=== PATIENT | male | born 1950 | race Caucasian/White ===

== ENCOUNTER 2016-04-22 23:02 | Inpatient (IN) | payer MEDICARE, MEDICAID ==
--- NOTE | 2016-04-22 23:19 | ED.PDOC ---
History of Present Illness - General Chief Complaint: Upper Extremity Injury Stated Complaint: swelling and redness right upper extremity Time Seen by Provider: 04/22/16 23:11 Source: patient, Vital Signs reviewed Exam Limitations: no limitations - History of Present Illness Initial Comments: He stated that he was reaching for his flashlight that fell behind the wall while his friend was prying the wallboard then after picking up his flashlight his friend released the wallboard and protruding nail stuck his right arm this happened at his garage while doing repair work. Occurred: other - 2 days ago Pain - Upper Extremity: moderate: Upper arm, right, Elbow, right Method of Injury: other - punctured wound Improving Factors: nothing Worsening Factors: movement Allergies/Adverse Reactions: Allergies NO KNOWN ALLERGY Allergy (Verified 02/05/15 10:21) Home Medications: Ambulatory Orders Lisinopril [Prinivil] 10 mg PO 10/26/15 Acetaminophen W/ Codeine [Tylenol W/ CODEINE #3] 1 - 2 ea PO Q4H #30 10/28/15 Bifidobacterium Infantis [Align] 4 mg NG DAILY #30 cap 10/28/15 Chlorhexidine Gluc 4% 15Ml [Hibiclens 15ml Unit Dose] 15 ml TOP ONCE #0 ud 10/27 Doxycycline (Monohydrate) [Doxycycline] 100 mg PO BID #28 cap 10/28/15 Doxycycline Hyclate [Vibramycin] 100 mg PO BID #28 cap 10/28/15 Sulfa/Trimeth 800/160 (Ds) Tab [Bactrim DS] 1 ea PO BID #28 tab 10/28/15 Review of Systems - Review of Systems Constitutional: States: no symptoms reported EENTM: States: no symptoms reported Respiratory: States: no symptoms reported Cardiology: States: no symptoms reported Gastrointestinal/Abdominal: States: no symptoms reported Genitourinary: States: other - urgency Musculoskeletal: States: joint swelling, muscle pain Skin: States: see HPI Neurological: States: no symptoms reported Endocrine: States: no symptoms reported Hematologic/Lymphatic: States: no symptoms reported Past Medical History (General) - Patient Medical History Hx Seizures: No Hx Stroke: No Hx Dementia: No Hx Asthma: No Hx of COPD: Yes Hx Cardiac Disorders: No Hx Congestive Heart Failure: No Hx Pacemaker: No Hx Hypertension: Yes Hx Thyroid Disease: No Hx Diabetes: No Hx Gastroesophageal Reflux: No Hx Renal Disease: No Hx Cancer: Yes - lung Hx of HIV: No Hx Hepatitis C: No Hx MRSA: Yes - 2015 MRSA Source:: Wound Surgical History: other - back,sympathectomy right - Vaccination History Hx Tetanus, Diphtheria Vaccination: Yes - <5 years Hx Influenza Vaccination: No Hx Pneumococcal Vaccination: No - Social History Hx Tobacco Use: Yes Hx Chewing Tobacco Use: No Hx Alcohol Use: Yes Hx Substance Use: No Hx Substance Use Treatment: No Hx Depression: Yes Hx Physical Abuse: No Hx Emotional Abuse: No Hx Suspected Abuse: No - Activities of Daily Living Patient Lives Alone: No - Female History Patient : No Family Medical History - Family History Mother Family History: Unknown Living Status: Unknown Hx Family Diabetes: Yes - mom Hx Family Cancer: Yes - gallbladder-sister Physical Exam - Physical Exam General Appearance: Alert, No apparent distress Eyes, Ears, Nose, Throat Exam: PERRL/EOMI, normal ENT inspection, TMs normal, pharynx normal Neck: full range of motion, supple, normal inspection Cardiovascular/Respiratory: regular rate, rhythm, no M/R/G, normal peripheral pulses, no JVD, normal breath sounds Abdominal Exam: non-tender, no organomegaly Back Exam: normal inspection, no CVA tenderness, no vertebral tenderness Shoulder Exam: non-tender, no evidence of injury Elbow/Forearm Exam: limited ROM - right upper extremity, pain, soft tissue tenderness, swelling - redness Hand Exam: non-tender, no evidence of injury Neuro/Tendon: normal motor functions, normal tendon functions, responds to pain Mental Status: alert, oriented x 3 Skin Exam: normal color, warm/dry Progress - Results/Orders Results/Orders: 04/22/16 23:29 COMPLETE METABOLIC PROFILE Stat LACTIC ACID Stat CBC (AUTOMATED) W/AUTO DIFF Stat 04/22/16 23:49 BLOOD CULTURE Stat 04/22/16 23:29 COMPLETE METABOLIC PROFILE Stat LACTIC ACID Stat CBC (AUTOMATED) W/AUTO DIFF Stat 04/22/16 23:49 BLOOD CULTURE Stat 04/23/16 00:58 Vancomycin HCl Inj 1,000 mg Vancomycin HCl Inj 500 mg Sodium Chloride 0.9% 250Ml [NS 250ml] 250 ml IVPB ONCE Laboratory Results WBC 19.0 K/mm3 (4.8-10.8) H 04/22/16 00:30 RBC 4.63 M/mm3 (4.70-6.10) L 04/22/16 00:30 Hgb 14.5 gm/dL (14.0-18.0) 04/22/16 00:30 Hct 43.4 % (42.0-52.0) 04/22/16 00:30 MCV 93.6 fl (80.0-94.0) 04/22/16 00:30 MCH 31.3 pg (27.0-31.0) H 04/22/16 00:30 MCHC 33.5 g/dL (33.0-37.0) 04/22/16 00:30 RDW 13.0 % (11.5-14.5) 04/22/16 00:30 Plt Count 249 K/mm3 (130-400) 04/22/16 00:30 MPV 8.1 fl (7.40-10.4) 04/22/16 00:30 Absolute Neuts (auto) 16.50 K/uL (1.8-6.8) H 04/22/16 00:30 Absolute Lymphs (auto) 1.20 K/uL (1.0-3.4) 04/22/16 00:30 Absolute Monos (auto) 1.30 K/uL (0.2-0.8) H 04/22/16 00:30 Absolute Eos (auto) 0.00 K/uL (0.0-0.4) 04/22/16 00:30 Absolute Basos (auto) 0.00 K/uL (0.0-0.1) 04/22/16 00:30 Neutrophils % 86.8 % (42.0-78.0) H 04/22/16 00:30 Lymphocytes % 6.2 % (20.0-50.0) L 04/22/16 00:30 Monocytes % 6.6 % (2.0-9.0) 04/22/16 00:30 Eosinophils % 0.2 % (1.0-5.0) L 04/22/16 00:30 Basophils % 0.2 % (0.0-2.0) 04/22/16 00:30 Sodium 133 mmol/L (135-145) L 04/22/16 23:45 Potassium 3.9 mmol/L (3.6-5.0) 04/22/16 23:45 Chloride 102 mmol/L (101-111) 04/22/16 23:45 Carbon Dioxide 24 mmol/L (21-31) 04/22/16 23:45 Anion Gap 10.9 (12-18) L 04/22/16 23:45 BUN 22 mg/dL (7-18) H 04/22/16 23:45 Creatinine 0.89 mg/dL (0.6-1.3) 04/22/16 23:45 BUN/Creatinine Ratio 24.7 (10-20) H 04/22/16 23:45 Random Glucose 139 mg/dL (70-105) H 04/22/16 23:45 Serum Osmolality 272.0 mOsm/L (275-295) L 04/22/16 23:45 Lactic Acid 1.1 mmol/L (0.5-2.2) 04/22/16 23:45 Calcium 8.2 mg/dL (8.4-10.2) L 04/22/16 23:45 Total Bilirubin 0.5 mg/dL (0.2-1.0) 04/22/16 23:45 AST 29 IU/L (10-42) 04/22/16 23:45 ALT 23 IU/L (10-60) 04/22/16 23:45 Alkaline Phosphatase 60 IU/L (42-121) 04/22/16 23:45 Serum Total Protein 6.7 gm/dL (6.4-8.2) 04/22/16 23:45 Albumin 3.4 g/dl (3.2-5.5) 04/22/16 23:45 Globulin 3.3 gm/dL (2.3-3.5) 04/22/16 23:45 Albumin/Globulin Ratio 1.0 (1.1-1.9) L 04/22/16 23:45 04/22/16 23:12 Temperature 100.2 F H Pulse Rate [ 95 H Left] Respiratory 20 Rate Blood Pressure 148/88 [Left Arm] O2 Sat by Pulse 99 Oximetry - EKG/XRAY/CT XRAY: elbow - right-no acute abnormality noted Departure - Departure Clinical Impression: Cellulitis of right upper extremity Time of Disposition: 01:13 - D/W Wan Fuentes ANP-Hospitalist Disposition: Admit Patient Condition: Good Departure Forms: ED Discharge - Pt. Copy, Patient Portal Self Enrollment Referrals: Mario Lin MD [Primary Care Provider] - 1-2 Weeks Home Medications: Ambulatory Orders Lisinopril [Prinivil] 10 mg PO 10/26/15 Acetaminophen W/ Codeine [Tylenol W/ CODEINE #3] 1 - 2 ea PO Q4H #30 10/28/15 Bifidobacterium Infantis [Align] 4 mg NG DAILY #30 cap 10/28/15 Chlorhexidine Gluc 4% 15Ml [Hibiclens 15ml Unit Dose] 15 ml TOP ONCE #0 ud 10/27 Doxycycline (Monohydrate) [Doxycycline] 100 mg PO BID #28 cap 10/28/15 Doxycycline Hyclate [Vibramycin] 100 mg PO BID #28 cap 10/28/15 Sulfa/Trimeth 800/160 (Ds) Tab [Bactrim DS] 1 ea PO BID #28 tab 10/28/15
[2016-04-23] MEDS ORDERED: MORPHINE SULFATE INJ 10 MG/ML VIAL IV ONE (00:16)
[2016-04-23] MEDS ORDERED: PROMETHAZINE HCL INJ 25 MG/ML VIAL IM ONE (00:16)
--- NOTE | 2016-04-23 00:26 | RAD ---
EXAM DESCRIPTION: Elbow,Right 3 Views CLINICAL HISTORY: pain COMPARISON: None FINDINGS: AP, lateral and oblique views of the right elbow were submitted. There is no discrete acute fracture or dislocation. Bone mineralization is within normal limits. There is no radiopaque foreign body material IMPRESSION: No acute fracture or dislocation Electronically signed by: Jeffrey Huertas MD 04/23/2016 12:24 AM [employer]
[2016-04-23] MEDS ORDERED: VANCOMYCIN HCL INJ 1,000 MG, VANCOMYCIN HCL INJ 500 MG in SODIUM CHLORIDE 0.9% 250ML 25... IVPB ONE (00:58)
[2016-04-23] MEDS ORDERED: VANCOMYCIN HCL INJ 500 MG VIAL ONE (01:10)
[2016-04-23] MEDS ORDERED: SODIUM CHLORIDE 0.9% 250ML 250 ML ONE ×2 (01:10→12:12)
[2016-04-23] MEDS ORDERED: VANCOMYCIN HCL INJ 1,000 MG VIAL IVPB ONE ×2 (01:10→12:12)
[2016-04-23] MEDS ORDERED: ACETAMINOPHEN 325 MG TAB PO PRN (01:19)
[2016-04-23] MEDS ORDERED: cefTRIAXone SODIUM 1 GM in SODIUM CHL 0.9% 50ML MIN-BAG+ 50 ML IVPB SCH (01:30)
[2016-04-23] MEDS ORDERED: IV SET AND CAP CHANGE INJ INJ SCH (01:30)
--- NOTE | 2016-04-23 01:33 | HP ---
SUPERVISING PHYSICIAN: Michael Vieira M.D. CHIEF COMPLAINT: Right arm pain. HISTORY OF PRESENT ILLNESS: Mr. Mcneal is a 66 year-old male patient who presented to the Emergency Department complaining of swelling and pain to his right elbow and arm. He notes that he was reaching for a flashlight that had fallen between a wall when his friend was prying a wall board apart. He grabbed the flashlight and his friend released the wall board, and he was struck in the elbow by a nail that was sticking out. He is current on his tetanus shot, has received one within the last year. Laboratory studies in the Emergency Department showed him to have a leukocytosis of 19.0 with a left shift. C reactive protein was elevated at 17.3. X-ray of his right elbow was completed in the Emergency Department prior to admission and per radiology interpretation there was no mention of acute fractures, dislocations or foreign bodies identified. The patient was started on vancomycin in the Emergency Department and admitted for continuation of treatment and evaluation with the patient having significant leukocytosis, and swelling to his right arm with concerns for infection versus cellulitis that is worsening with the patient being febrile on admission. The patient is admitted to the Medical/Surgical floor in stable condition. PAST MEDICAL HISTORY: 1. Chronic obstructive pulmonary disease. 2. Hypertension. 3. Chronic back pain. PAST SURGICAL HISTORY: 1. Hernia repair. 2. Back surgery L2 fusion. CURRENT MEDICATIONS: 1. Lisinopril 10 mg daily. ALLERGIES: NO KNOWN DRUG ALLERGIES. SOCIAL HISTORY: The patient is a disabled [employer] . He is . He lives in [place], [place]. He has a history of smoking and currently smokes approximately a pack of cigarettes a day and has so for greater than 40 years. He drinks alcohol on an occasional social basis with a beer every once in a while. He denies any illicit drug use. REVIEW OF SYSTEMS: Positive for chills and fever. HEENT: Denies any complaints. RESPIRATORY: Positive for history of smoking with a nonproductive cough. Denies any shortness of breath or wheezing. CARDIOVASCULAR: Denies any chest pains or palpitations. GASTROINTESTINAL: Denies any abdominal pain, nausea or vomiting. No diarrhea or constipation. GENITOURINARY: Denies any urinary symptoms. EXTREMITIES: As noted in the history of present illness with cellulitis, swelling and pain to the right arm. PHYSICAL EXAMINATION: VITAL SIGNS: Temp 101.1, pulse 84, blood pressure 152/81, respirations 20, O2 sat showing 100% on room air. Admission weight is 79.6 kg. GENERAL: Upon admission to the Medical/Surgical floor the patient is in no apparent distress. He is resting comfortably with his arm elevated on multiple pillows. HEENT: Tympanic membranes are clear bilaterally. Oropharynx in pink and moist without any lesions. NECK: No jugular venous distention. CHEST: Clear to auscultation bilaterally without any rhonchi, wheezing or rales. CARDIOVASCULAR: Regular rate and rhythm without appreciable murmurs, gallops, or rubs. ABDOMEN: Obese but soft, non-tender. Positive bowel sounds. EXTREMITIES: Right upper extremity from shoulder down to hand and distal tips of fingers notes 1+ pitting edema with a large area of erythema noted that has been marked with a marker. There are no obvious areas of consolidation, crepitus or drainage, or any areas of fluctuation. Radial pulses are 2+ bilaterally. Capillary refill is brisk bilaterally. There are no reported paresthesias. NEUROLOGIC: Cranial nerves II-XII are grossly intact. Facial features are symmetrical. Extraocular movements are within normal limits. There is no nystagmus. There is no notable localizing or lateralizing neurological deficits. LABORATORY: White count no admission shows a leukocytosis of 19.0 with a left shift. Hemoglobin 14.5, hematocrit 43.4, platelet count 249,000. Chemistries show low sodium 133, potassium 3.9, BUN 22, creatinine 0.8, glucose 139, lactic acid 1.1, calcium 8.2. Liver functions show to be within normal limits. C reactive protein 17.3. CPK 316. Urine is pending. Urine drug screen is pending. RADIOLOGY: CT of the upper extremity is pending. Elbow x-ray performed in the Emergency Department prior to admission showed no acute dislocations, fractures or foreign bodies identified per radiology interpretation. ASSESSMENT: 1. Cellulitis to the upper extremity both forearm and humerus area with no obvious areas of crepitus or consolidations with concern for possible development of compartmental syndrome with just a slightly elevated CPK on admission. Etiology is uncertain, per history is a puncture wound by nail with the patient being current on his tetanus immunization. 2. Febrile illness secondary to number 1. 3. Leukocytosis secondary to number 1. 4. History of hypertension. PLAN: The patient is admitted to the hospital for parenteral antibiotics. He was started on vancomycin. Will continue with vancomycin per pharmacy protocol and Rocephin as well. He will be provided pain medicine with morphine and [place] as needed. Await final results of a CT of the upper extremity to rule out any areas of abscess formation. His hand will be elevated on multiple pillows and closely monitored for increasing pressure with concerns on admission for compartmental syndrome. He will be started on DVT prophylaxis as per protocol. Will anticipate length of stay to be 2 to 3 days with likely requirement of intermediate antibiotic therapy. Until discharge, will continue to monitor the patient closely and treat appropriately. #[id number] [facility]
[2016-04-23] MEDS ORDERED: SODIUM CHL 0.9% 50ML MIN-BAG+ 50 ML IVPB ONE ×2 (01:56→12:09)
[2016-04-23] MEDS ORDERED: cefTRIAXone SODIUM 1 GM VIAL ONE ×2 (01:56→12:10)
[2016-04-23] MEDS: KCL 20 MEQ/NS 1,000 ML IVS PRN ×3 (01:59→23:06)
[2016-04-23] MEDS: HYDROcodone 5MG/APAP 325MG 1 EA TAB PO PRN ×2 (01:59→05:52)
--- NOTE | 2016-04-23 08:16 | PCM.CORE ---
Physician DVT/VTE - Nurse DVT Assessment & Total Each Risk Factor Represents 2 Points: Age 60-74 Each Risk Factor Represents 1 Point: Medical PT at Bed Rest, Hx of smoking past year Each Risk Factor is 1 Point: Serious Lung disease (pnemonia <1month, COPD, emphysema,etc) DVT Assessment Score: 5 - 5 or more Very High Risk Treatments: Early Ambulation *, Sequential Compression Device Pharmacological: Enoxaparin 40mg SQ Daily
[2016-04-23] MEDS ORDERED: ENOXAPARIN SODIUM 40 MG/0.4 ML SYG SUBCU SCH (08:30)
[2016-04-23] MEDS: HYDROcodone/IBUPROFEN 7.5/200 1 EA TAB PO PRN ×2 (08:57→18:31)
--- NOTE | 2016-04-23 08:57 | RAD ---
NAME: MARTIN MAHONEY JRPROCEDURE: XR CHEST 2 VIEWSORDER DATE: 04/23/2016 8:22 AM CSTACCESSION NUMBER: [id number] CLINICAL HISTORY: cough INDICATION: Same as above COMPARISON: 02/05/2015 TECHNIQUE: PA and and lateral chest radiographs were obtained. FINDINGS: Surgical flavio are again seen in the right paratracheal region . There is presence of mild discoid atelectasis/infiltrate in the right lower lobe of the lung. There are no pneumothoraces or pleural effusions. The pulmonary vascularity is normal The cardiomediastinal silhouette is unremarkable for patient's age and sex. Stable compression deformity of one of the lower thoracic vertebrae is again noted, unchanged. IMPRESSION: There is presence of mild discoid atelectasis/infiltrate in the right lower lobe of the lung. Place of interpretation: Teleradiology. Electronically signed by: Dano Esteban MD 04/23/2016 8:55 AM LUMBER CHECKER
[2016-04-23] MEDS ORDERED: VANCOMYCIN PER PHARMACY IVPB SCH (09:00)
[2016-04-23] MEDS: ENOXAPARIN SODIUM 40 MG/0.4 ML SYG SUBCU SCH (09:21)
[2016-04-23] MEDS: SODIUM CHLORIDE 0.9% 10 ML VIAL IV PRN ×3 (10:32→21:55)
[2016-04-23] MEDS: MORPHINE SULFATE INJ 10 MG/ML VIAL IV PRN ×2 (10:32→19:32)
[2016-04-23] MEDS: cefTRIAXone SODIUM 1 GM in SODIUM CHL 0.9% 50ML MIN-BAG+ 50 ML IVPB SCH (12:17)
--- NOTE | 2016-04-23 12:35 | CT ---
NAME: MARTIN MAHONEY JRPROCEDURE: CT UPPER EXTREMITY WITHOUT IV CONTRASTORDER DATE: 04/23/2016 8:09 AM CSTACCESSION NUMBER: [id number] Clinical History and Indication: Puncture wound of the right arm and right elbow with cellulitis Comparison: None Technique: CT of the distal right forearm, CT of the right elbow and the CT of the proximal right arm was done utilizing intravenous contrast Total DLP: 735.07 mGy*cm. Findings: There is presence of soft tissue laceration in the medial right elbow and presence of diffuse soft tissue edema in the distal right arm, proximal right forearm and the right elbow. A distinct intramuscular or subcutaneous fluid collection is not visualized. Normal vascular contrast enhancement is noted. There is no evidence of fractures or dislocations involving the right elbow joint. There are no periosteal reactions. Impression: There is presence of soft tissue laceration in the medial right elbow and presence of diffuse soft tissue edema in the distal right arm, proximal right forearm and the right elbow. A distinct intramuscular or subcutaneous fluid collection is not visualized. Location of Interpretation: [id number]. Electronically signed by: Dano Esteban MD 04/23/2016 11:24 AM LSW
--- NOTE | 2016-04-23 12:36 | CT ---
NAME: MARTIN MAHONEY JRPROCEDURE: CT UPPER EXTREMITY WITHOUT IV CONTRASTORDER DATE: 04/23/2016 8:09 AM CSTACCESSION NUMBER: [id number] Clinical History and Indication: Puncture wound of the right arm and right elbow with cellulitis Comparison: None Technique: CT of the distal right forearm, CT of the right elbow and the CT of the proximal right arm was done utilizing intravenous contrast Total DLP: 735.07 mGy*cm. Findings: There is presence of soft tissue laceration in the medial right elbow and presence of diffuse soft tissue edema in the distal right arm, proximal right forearm and the right elbow. A distinct intramuscular or subcutaneous fluid collection is not visualized. Normal vascular contrast enhancement is noted. There is no evidence of fractures or dislocations involving the right elbow joint. There are no periosteal reactions. Impression: There is presence of soft tissue laceration in the medial right elbow and presence of diffuse soft tissue edema in the distal right arm, proximal right forearm and the right elbow. A distinct intramuscular or subcutaneous fluid collection is not visualized. Location of Interpretation: [id number]. Electronically signed by: Dano Esteban MD 04/23/2016 11:24 AM TOW MATE
[2016-04-23] MEDS: VANCOMYCIN HCL INJ 1,000 MG in SODIUM CHLORIDE 0.9% 250ML 250 ML IVPB SCH (12:59)
--- NOTE | 2016-04-23 19:58 | CT ---
NAME: MARTIN MAHONEY JRPROCEDURE: CT UPPER EXTREMITY WITHOUT IV CONTRASTORDER DATE: 04/23/2016 8:09 AM CSTACCESSION NUMBER: [id number] Clinical History and Indication: Puncture wound of the right arm and right elbow with cellulitis Comparison: None Technique: CT of the distal right forearm, CT of the right elbow and the CT of the proximal right arm was done utilizing intravenous contrast Total DLP: 735.07 mGy*cm. Findings: There is presence of soft tissue laceration in the medial right elbow and presence of diffuse soft tissue edema in the distal right arm, proximal right forearm and the right elbow. A distinct intramuscular or subcutaneous fluid collection is not visualized. Normal vascular contrast enhancement is noted. There is no evidence of fractures or dislocations involving the right elbow joint. There are no periosteal reactions. Impression: There is presence of soft tissue laceration in the medial right elbow and presence of diffuse soft tissue edema in the distal right arm, proximal right forearm and the right elbow. A distinct intramuscular or subcutaneous fluid collection is not visualized. Location of Interpretation: [id number]. Electronically signed by: Dano Esteban MD 04/23/2016 11:24 AM CARTON FILLING MACHINE OPERATOR
[2016-04-23] MEDS ORDERED: KETOROLAC TROMETHAMINE INJ 30 MG/ML VIAL IV ONE (20:48)
[2016-04-23] MEDS: SODIUM CHLORIDE 0.9% (FLUSH) 10 ML SYG IV PRN ×2 (20:59→21:54)
[2016-04-23] MEDS: HYDROmorphone HCL INJ 2 MG/ML VIAL IV PRN (21:55)
[2016-04-24] MEDS ORDERED: SODIUM CHLORIDE 0.9% 250ML 250 ML ONE ×3 (00:05→23:59)
[2016-04-24] MEDS ORDERED: cefTRIAXone SODIUM 1 GM VIAL ONE ×3 (00:07→23:51)
[2016-04-24] MEDS ORDERED: SODIUM CHL 0.9% 50ML MIN-BAG+ 50 ML IVPB ONE ×3 (00:07→23:50)
[2016-04-24] MEDS ORDERED: VANCOMYCIN HCL INJ 1,000 MG VIAL IVPB ONE ×3 (00:07→23:59)
[2016-04-24] MEDS: cefTRIAXone SODIUM 1 GM in SODIUM CHL 0.9% 50ML MIN-BAG+ 50 ML IVPB SCH ×3 (00:25→23:54)
[2016-04-24] MEDS: SODIUM CHLORIDE 0.9% 10 ML VIAL IV PRN ×3 (00:25→22:51)
[2016-04-24] MEDS: VANCOMYCIN HCL INJ 1,000 MG in SODIUM CHLORIDE 0.9% 250ML 250 ML IVPB SCH ×2 (01:15→16:11)
[2016-04-24] MEDS: HYDROmorphone HCL INJ 2 MG/ML VIAL IV PRN ×2 (08:02→18:57)
[2016-04-24] MEDS ORDERED: NICOTINE PATCH 21 MG TD ONE (08:29)
[2016-04-24] MEDS: ENOXAPARIN SODIUM 40 MG/0.4 ML SYG SUBCU SCH (08:56)
[2016-04-24] MEDS: SODIUM CHLORIDE 0.9% (FLUSH) 10 ML SYG IV PRN ×5 (08:56→22:51)
[2016-04-24] MEDS: HYDROcodone/IBUPROFEN 7.5/200 1 EA TAB PO PRN ×2 (12:34→21:01)
[2016-04-24] MEDS ORDERED: VANCOMYCIN HCL INJ 500 MG VIAL ONE ×2 (13:21→23:59)
[2016-04-24] MEDS: VANCOMYCIN HCL INJ 1,000 MG, VANCOMYCIN HCL INJ 250 MG in SODIUM CHLORIDE 0.9% 250ML 25... IVPB SCH (13:29)
--- NOTE | 2016-04-24 13:59 | PN ---
DATE: 04/24/16 SUPERVISING PHYSICIAN: Mario Lin M.D. SUBJECTIVE: The patient continues to have pain in his right arm but reports that it is controlled with morphine. He denies any paresthesias. He did run a fever with a T max of 100.4. He has had no chest pains, nausea or vomiting, or any other additional complaints. OBJECTIVE: VITAL SIGNS: T max 101.4, pulse 73, blood pressure 121/66, respirations 20, satting 94% on room air. I's and O's show a positive balance of 3384 with 4259 in, 875 out. Weight is 79.6 kg. GENERAL: The patient appears to be comfortable. CHEST: Clear to auscultation bilaterally. HEART: Regular rate and rhythm. ABDOMEN: Soft, non-tender. Positive bowel sounds. EXTREMITIES: No clubbing, cyanosis or edema to the bilateral lower extremities and the left arm. The right arm continues to be swollen from the shoulder to the distal tip of the fingers. There still continue some areas of erythema more so on the lateral aspect of the elbow with a small area of redness and no obvious crepitus or consolidations. Radial pulse remains strong 2+ and equal bilaterally. Capillary refill is brisk. Pulse oximetry on the right hand is within normal limits and comparable to the left. His hand is swollen but area measurements of the mid forearm and mid biceps have decreased since admission with initial measurement of the biceps at 37 cm, forearm measuring 30 cm with reported measurements this morning slightly decreased from admission without completion of documentation at time of note. NEUROLOGIC: He is alert and oriented times three. LABORATORY: White count did increase significantly to 25.3 with 4 bands. Hemoglobin 13.7, hematocrit 41.6, platelet count 203,000. Chemistries show continued low sodium at 133 with potassium 4.6, BUN 20, creatinine 0.9, glucose 151, calcium 7.3. Followup on the CK from admission from 316 shows to be elevated to 769. Urine drug screen did come back positive for methamphetamines and opiates, but the patient is on [place] and Dilaudid for pain control. Vancomycin trough was 7.5. MICROBIOLOGY: MRSA surveillance culture shows to be negative at 24 hours. Blood cultures remain negative at 24 hours. ASSESSMENT: 1. Cellulitis of the right upper extremity both forearm and biceps with no obvious areas of crepitus or consolidations currently with concerns remaining for the development of compartmental syndrome, however the patient remains with good pulses and showing slightly decreasing measurements from admission. There is questionable area of early consolidation but no drainage noted along the puncture wound. 2. Elevated CPK secondary to number 1. 3. Febrile illness secondary to number 1. 4. Leukocytosis secondary to number 1. 5. History of hypertension, stable. 6. Positive urine drug screen for methamphetamines. PLAN: The patient will continue with vancomycin and Rocephin as he is showing some good clinical improvement. He is having good pain control with Dilaudid p.r.n. between morphine. He was started on DVT prophylaxis as per protocol. He was instructed to keep his arm elevated to a maximum extent as possible. I plan to get an ultrasound of his elbow of the area in question of the puncture wound to further assess for any consolidations and consult with Dr. Luther in regards to helping with management of the wound with anticipation of possible maybe requirement of an incision and drainage. He will remain on antibiotics currently with Rocephin and vancomycin per Pharmacy protocol. Nurses have instructions to monitor his pulses with pulse oximetry on the right hand and to notify me if significant decrease in oxygenation or pulse is noted. 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 He will be made NPO tonight with anticipation of possibly needing surgical incision and drainage pending of course ultrasound findings. Will plan to reevaluate in the morning with laboratory studies, including CBC and BMP with vancomycin trough levels per Pharmacy protocol. Until discharge, will follow the patient closely and treat appropriately. #[id number] [facility]
[2016-04-24] MEDS ORDERED: metroNIDAZOLE IV PREMIX 500MG 100 ML IVPB ONE ×2 (15:25→22:46)
[2016-04-24] MEDS: metroNIDAZOLE IV PREMIX 500MG 500 MG in PREMIX BAG 1 BAG IVPB SCH ×2 (15:37→22:52)
[2016-04-24] MEDS: MORPHINE SULFATE INJ 10 MG/ML VIAL IV PRN ×2 (17:16→22:52)
[2016-04-24] MEDS ORDERED: HYDROmorphone HCL INJ 2 MG/ML VIAL IV PRN (18:30)
[2016-04-24] MEDS ORDERED: FUROSEMIDE INJ 100 MG/10 ML VIAL IV ONE (19:17)
[2016-04-24] MEDS: SODIUM CHLORIDE 0.9% (FLUSH) 10 ML SYG IV SCH (20:56)
[2016-04-25] MEDS: SODIUM CHLORIDE 0.9% (FLUSH) 10 ML SYG IV PRN ×5 (00:30→10:10)
[2016-04-25] MEDS: VANCOMYCIN HCL INJ 1,000 MG, VANCOMYCIN HCL INJ 250 MG in SODIUM CHLORIDE 0.9% 250ML 25... IVPB SCH (00:31)
[2016-04-25] MEDS: SODIUM CHLORIDE 0.9% 10 ML VIAL IV PRN ×5 (00:31→10:16)
[2016-04-25] MEDS: HYDROmorphone HCL INJ 2 MG/ML VIAL IV PRN ×2 (00:43→06:38)
[2016-04-25] MEDS ORDERED: metroNIDAZOLE IV PREMIX 500MG 100 ML IVPB ONE (06:12)
[2016-04-25] MEDS: metroNIDAZOLE IV PREMIX 500MG 500 MG in PREMIX BAG 1 BAG IVPB SCH (06:30)
[2016-04-25 06:53] VITALS: TEMP 97
[2016-04-25 07:40] VITALS: O2SAT 93
[2016-04-25] MEDS: MORPHINE SULFATE INJ 10 MG/ML VIAL IV PRN (08:13)
[2016-04-25] MEDS: ENOXAPARIN SODIUM 40 MG/0.4 ML SYG SUBCU SCH (08:51)
[2016-04-25] MEDS: SODIUM CHLORIDE 0.9% (FLUSH) 10 ML SYG IV SCH (08:52)
[2016-04-25 10:12] VITALS: BP 149/88
[2016-04-25] MEDS ORDERED: SODIUM CHLORIDE 0.9% 1000ML 1,000 ML IVS PRN (10:22)
[2016-04-25] MEDS ORDERED: SODIUM CHLORIDE 0.9% 1000ML 1,000 ML ONE (10:26)
--- NOTE | 2016-04-25 10:35 | CONS ---
DATE OF CONSULTATION: 04/25/16 HISTORY OF PRESENT ILLNESS: The patient is a 66-year-old male who states he has seen me in the past for a herniorrhaphy who states that he stuck himself in the antecubital fossa on his right arm several days ago. He is uncertain of the exact date. He presented to the Emergency Room three days ago with a white count of 19,000, a C-reactive protein of 17. X-rays were negative for a fracture or I assume air in the soft tissues. He was admitted and started on vancomycin and Rocephin. Since then, there has been some worsening. Flagyl was added for anaerobics due to puncture wound. He was febrile on admission, but is not currently. The patient's swelling and redness has worsened as have some of his labs, and I have been asked to evaluate. PAST MEDICAL HISTORY: 1. Hypertension. 2. Chronic obstructive pulmonary disease. 3. Chronic back pain status post lumbar fusion. 4. Herniorrhaphy. CURRENT MEDICATIONS: 1. Lisinopril. ALLERGIES: NO KNOWN DRUG ALLERGIES. FAMILY HISTORY: Noncontributory. SOCIAL HISTORY: The patient is disabled. He served in the [employer]. He is . He currently smokes at least one pack a day and has greater than 40 pack year history of tobacco abuse. He drinks moderately. He state that he uses methamphetamine. REVIEW OF SYSTEMS: There is no shortness of breath or chest pain. He denies nausea, vomiting, diarrhea or urinary symptoms. Extremities are unremarkable except to the right arm. PHYSICAL EXAMINATION: VITAL SIGNS: The patient is currently afebrile, normotensive. GENERAL: He is awake, alert, cooperative and in moderate distress. HEENT: Sclerae nonicteric. Mucous membranes moist. NECK: Without adenopathy. BACK: Without CVA tenderness. CHEST: Equal breath sounds anteriorly bilaterally. HEART: Regular rate and rhythm. ABDOMEN: Soft and benign. EXTREMITIES: The right upper extremity is tense from the mid forearm to just distal to the axilla. There is erythema covering most of this area. There is no fluctuance. I palpated no crepitus, but the arm is quite tender. There is some tenderness over the pectoralis on the right side. The radial pulse was absent. Otherwise, extremities are within normal limits. LABORATORY: White blood cell count 27.6 this morning, up from 19 on admission. Hemoglobin 14.7, 14.5 on admission. Platelet count 249.000. Segmented neutrophils are 62. There are 8 banded neutrophils, 2+ daniel cells. Chemistries reveal CK 1755, up from 769 on admission. Creatinine up to 1.24 from 0.87 on admission. Potassium 4.5. Liver functions within normal limits. CT scan which was obtained the morning after admission shows only edema with no discrete fluid collection, no fracture noted, and no air noted in the arm. Ultrasound is currently pending. ASSESSMENT: 1. Cellulitis versus necrotizing fasciitis versus cellulitis or abscess with compartment syndrome. RECOMMENDATION: Since the pain has extended into his chest and with his worsening labs, he should be hydrated and transferred to a higher level of care where he can be urgently explored and, if necessary, debrided and care for in ICU. Also, if this is necrotizing fasciitis, he may require a forequarter amputation and we would need orthopedic surgery for that and Dr. Reyes is not available. #[id number] [facility]
--- NOTE | 2016-04-25 10:42 | US ---
EXAM DESCRIPTION: US EXTREMITY MUSCULOSKELETAL CLINICAL HISTORY: 66 y/o M, right arm/elbow abcess COMPARISON: None. FINDINGS: Ultrasound of the medial aspect of the right elbow was performed. There is a small amount of interstitial fluid at the area of concern. There is an ovoid 3.9 x 2.1 cm structure just deep to the skin surface at the area of concern which contains hypoechoic and hyperechoic areas and could represent either abscess or hematoma. No color Doppler images of the structure were obtained. IMPRESSION: 3.9 x 2.1 cm complex structure at the area of concern. Hematoma or abscess are not excluded. If relevant, MRI with gadolinium contrast may be helpful for further evaluation. Electronically signed by: Ambrose Samayoa DO 04/25/2016 10:40
--- NOTE | 2016-04-25 11:23 | DS ---
DISCHARGE DIAGNOSIS: 1. Cellulitis to the upper extremity both forearm and biceps with concerns now for necrotizing fasciitis having failed to respond to current treatment that included Rocephin, vancomycin, and Flagyl. 2. Elevated CPK, secondary to #1. 3. Febrile illness, secondary to #1. 4. Leukocytosis, worsening, secondary to #1, despite being on parenteral antibiotics to include Flagyl, Rocephin and vancomycin. 4. History of hypertension, stable. 5. Positive urine drug screen for methamphetamines. HISTORY OF PRESENT ILLNESS: Mr. Mcneal is a 66-year-old, male patient who presented to the Emergency Department initially on 04/22/16 complaining of swelling and pain to his right elbow and arm. He noted that he was reaching for a flashlight that had fallen between a wall when his friend was prying a wall board apart. He grabbed the flashlight and his friend released the wall board, and he was struck in the elbow by a nail that was sticking out. This occurred approximately 2 days prior to admission. He is current on his tetanus shot, as he had a previous similar episode in [address] at [facility]. Laboratory studies in the Emergency Department initially showed a leukocytosis of 19.0 with a left shift. C-reactive protein was elevated at 17.3. X-ray of his right elbow was completed in the Emergency Department prior to admission and per radiology interpretation there was no mention of acute fractures, dislocations or foreign bodies identified. The patient was started on vancomycin in the Emergency Department and admitted for continuation of treatment and evaluation with the patient having significant leukocytosis and swelling to his right arm with concerns for infection versus cellulitis that is worsening with the patient being febrile on admission. The patient was started on vancomycin and Rocephin and admitted to the Medical/ Surgical Floor . CT of the right arm was completed upon admission and per radiology interpretation, there was presence of a soft tissue laceration on the medial right elbow and presence of of diffuse soft tissue edema in the distal right arm, proximal right forearm, and right elbow. Distinct intramuscular or subcutaneous fluid collection was not identified. Initially, the patient did show some improvement in the swelling and was still showing no consolidations or obvious areas of abscess formation on Monday, the morning of admission, and was continued on treatment plan. Monday, the patient showed an increase in leukocytosis, but remained afebrile and was showing some increasing swelling, but was stable. Flagyl was added to his medication regimen and he was closely observed overnight. He was made NPO in anticipation of possibly having an incision and drainage requirement the next day. This morning, on transfer date , the patient had a significant increasing leukocytosis and increasing CPK. With the patient having failed to respond adequately to current antibiotic regimen even with blood cultures remaining negative at 24 hours, the patient is to be transferred to [facility] for higher level of care. Dr. Luther, our general surgeon, was consulted and recommended the patient be transferred for concerns of possible necrotizing fasciitis. Orthopedic services are not currently available at [facility] and the patient will likely need a higher level of care with an extensive surgery if required and ICU after for close monitoring, which is not available at [facility]. The patient was transferred by ground ambulance in critical, but stable condition. LABORATORY: Initial white count was 19,000, increasing through admission and at time of discharge was 27.6 with differential showing a left shift and increasing bands. Hemoglobin 14.7, hematocrit 44.5. Chemistries showed initial sodium 133. Other electrolytes were within normal limits. BUN 22, creatinine 0.89, glucose 139. Liver functions were within normal limits. Lactic acid initially 1.1, C-reactive protein 17.3 and CPK on admission of 316. Repeat laboratories showed electrolytes remained stable with again low sodium 133, potassium 4.6, BUN 20, creatinine 0.9. CPK on 04/24/16 had increased to 769. He had a repeat BMP on the afternoon of 04/24/16 with essentially unchanged electrolytes. At that time, lactic acid was completed and was 1.4 with increasing CPK of 1136. On the morning of transfer, electrolytes remained stable with potassium 4.5, sodium 133, BUN 23, creatinine 1.24 which was slightly elevated from admission creatinine of .89. CPK showed elevation again at 1755 and C-reactive protein was repeated and showing increase to 24.4. Urine drug screen on admission was positive for amphetamines and opioids with vancomycin on 04/24/16 being 7.5. Urinalysis on admission showed 100 protein, 100 glucose, small amount of blood and negative leukocytosis and nitrites. Microscopic was within normal limits. MICROBIOLOGY: Two sets of blood cultures on admission remained negative at 48 hours. MRSA surveillance culture was negative at 48 hours. RADIOLOGY: Elbow x-ray in the Emergency Department prior to admission on showed no acute fractures or dislocations per radiology interpretation. Upper extremity CT was completed on 04/23/16 and per radiology interpretation showed the presence of soft tissue laceration in the medial right elbow and presence of a diffuse soft tissue edema in the distal right arm, proximal right forearm and right elbow. A distinct intramuscular subcutaneous fluid collection was not visualized. He also had a soft tissue ultrasound of the right elbow with results pending at time of transfer. HOSPITAL COURSE: Mr. Mcneal was admitted from the Emergency Room on 04/23/16 as noted in history of present illness with cellulitis of the right arm from a puncture wound. He was started on parenteral antibiotics to include Rocephin and vancomycin per our pharmacy protocol. The patient initially on the day after admission showed some improvement with swelling decreasing with the patient remaining stable and afebrile. He did show a slight increase of his leukocytosis. On the morning of discharge/transfer, the patient again had shown increasing swelling that now extended up into his shoulder and pectoralis muscle with an area on the medial aspect of the elbow showing possible consolidation, but no crepitus was noted. Additional antibiotics were added to his antibiotic regimen 24 hours prior to discharge that included Flagyl with concerns for a possible anaerobic growth. No cultures were obtained on admission as there was no obvious area to culture. No drainage was noted on admission. Dr. Luther was consulted to assist with the patient's care and recommended the patient be transferred to [facility] for a higher level of care with concerns for possibly developing necrotizing fasciitis which will require extensive surgery with orthopedics which is not available at [facility] currently. He will also require higher level of care in regards to infectious disease management, antibiotic therapy, and possibly Intensive Care Unit. At time of transfer, the patient was critical, but stable. PLAN: The patient is to be transferred to [facility] for higher level of care as there are no orthopedic services and no Intensive Care Unit available at [facility] at time of transfer. Dr. Asencio , hospitalist, accepted the patient in transfer. At the time of transfer, his vital signs showed temperature 97, pulse 71, blood pressure 149/88, respirations 20, saturation 98% on room air. IV fluids infusion with normal saline at 250 cc an hour and the patient was transferred by ground ambulance. Condition was critical, but stable. Documents included History and Physical and all imaging studies. #[id number] [facility]
--- NOTE | 2016-04-27 11:57 | CT ---
NAME: MARTIN MAHONEY JRPROCEDURE: CT UPPER EXTREMITY WITHOUT IV CONTRASTORDER DATE: 04/23/2016 8:09 AM CSTACCESSION NUMBER: [id number] Clinical History and Indication: Puncture wound of the right arm and right elbow with cellulitis Comparison: None Technique: CT of the distal right forearm, CT of the right elbow and the CT of the proximal right arm was done utilizing intravenous contrast Total DLP: 735.07 mGy*cm. Findings: There is presence of soft tissue laceration in the medial right elbow and presence of diffuse soft tissue edema in the distal right arm, proximal right forearm and the right elbow. A distinct intramuscular or subcutaneous fluid collection is not visualized. Normal vascular contrast enhancement is noted. There is no evidence of fractures or dislocations involving the right elbow joint. There are no periosteal reactions. Impression: There is presence of soft tissue laceration in the medial right elbow and presence of diffuse soft tissue edema in the distal right arm, proximal right forearm and the right elbow. A distinct intramuscular or subcutaneous fluid collection is not visualized. Location of Interpretation: [id number]. Electronically signed by: Dano Esteban MD 04/23/2016 11:24 AM HABILITATIVE INTERVENTIONIST
--- NOTE | 2016-05-15 23:52 | RAD ---
NAME: MARTIN MAHONEY JRPROCEDURE: XR CHEST 2 VIEWSORDER DATE: 04/23/2016 8:22 AM CSTACCESSION NUMBER: [id number] CLINICAL HISTORY: cough INDICATION: Same as above COMPARISON: 02/05/2015 TECHNIQUE: PA and and lateral chest radiographs were obtained. FINDINGS: Surgical flavio are again seen in the right paratracheal region . There is presence of mild discoid atelectasis/infiltrate in the right lower lobe of the lung. There are no pneumothoraces or pleural effusions. The pulmonary vascularity is normal The cardiomediastinal silhouette is unremarkable for patient's age and sex. Stable compression deformity of one of the lower thoracic vertebrae is again noted, unchanged. IMPRESSION: There is presence of mild discoid atelectasis/infiltrate in the right lower lobe of the lung. Place of interpretation: Teleradiology. Electronically signed by: Dano Esteban MD 04/23/2016 8:55 AM NET TRAINER
--- NOTE | 2016-05-15 23:52 | CT ---
NAME: MARTIN MAHONEY JRPROCEDURE: CT UPPER EXTREMITY WITHOUT IV CONTRASTORDER DATE: 04/23/2016 8:09 AM CSTACCESSION NUMBER: [id number] Clinical History and Indication: Puncture wound of the right arm and right elbow with cellulitis Comparison: None Technique: CT of the distal right forearm, CT of the right elbow and the CT of the proximal right arm was done utilizing intravenous contrast Total DLP: 735.07 mGy*cm. Findings: There is presence of soft tissue laceration in the medial right elbow and presence of diffuse soft tissue edema in the distal right arm, proximal right forearm and the right elbow. A distinct intramuscular or subcutaneous fluid collection is not visualized. Normal vascular contrast enhancement is noted. There is no evidence of fractures or dislocations involving the right elbow joint. There are no periosteal reactions. Impression: There is presence of soft tissue laceration in the medial right elbow and presence of diffuse soft tissue edema in the distal right arm, proximal right forearm and the right elbow. A distinct intramuscular or subcutaneous fluid collection is not visualized. Location of Interpretation: [id number]. Electronically signed by: Dano Esteban MD 04/23/2016 11:24 AM RIVERBOAT CAPTAIN
--- NOTE | 2016-05-15 23:52 | RAD ---
EXAM DESCRIPTION: Elbow,Right 3 Views CLINICAL HISTORY: pain COMPARISON: None FINDINGS: AP, lateral and oblique views of the right elbow were submitted. There is no discrete acute fracture or dislocation. Bone mineralization is within normal limits. There is no radiopaque foreign body material IMPRESSION: No acute fracture or dislocation Electronically signed by: Jeffrey Huertas MD 04/23/2016 12:24 AM HIP HOP DANCER
--- NOTE | 2016-05-15 23:52 | CT ---
NAME: MARTIN MAHONEY JRPROCEDURE: CT UPPER EXTREMITY WITHOUT IV CONTRASTORDER DATE: 04/23/2016 8:09 AM CSTACCESSION NUMBER: [id number] Clinical History and Indication: Puncture wound of the right arm and right elbow with cellulitis Comparison: None Technique: CT of the distal right forearm, CT of the right elbow and the CT of the proximal right arm was done utilizing intravenous contrast Total DLP: 735.07 mGy*cm. Findings: There is presence of soft tissue laceration in the medial right elbow and presence of diffuse soft tissue edema in the distal right arm, proximal right forearm and the right elbow. A distinct intramuscular or subcutaneous fluid collection is not visualized. Normal vascular contrast enhancement is noted. There is no evidence of fractures or dislocations involving the right elbow joint. There are no periosteal reactions. Impression: There is presence of soft tissue laceration in the medial right elbow and presence of diffuse soft tissue edema in the distal right arm, proximal right forearm and the right elbow. A distinct intramuscular or subcutaneous fluid collection is not visualized. Location of Interpretation: [id number]. Electronically signed by: Dano Esteban MD 04/23/2016 11:24 AM WAGON DRIVER
--- NOTE | 2016-05-15 23:52 | CT ---
NAME: MARTIN MAHONEY JRPROCEDURE: CT UPPER EXTREMITY WITHOUT IV CONTRASTORDER DATE: 04/23/2016 8:09 AM CSTACCESSION NUMBER: [id number] Clinical History and Indication: Puncture wound of the right arm and right elbow with cellulitis Comparison: None Technique: CT of the distal right forearm, CT of the right elbow and the CT of the proximal right arm was done utilizing intravenous contrast Total DLP: 735.07 mGy*cm. Findings: There is presence of soft tissue laceration in the medial right elbow and presence of diffuse soft tissue edema in the distal right arm, proximal right forearm and the right elbow. A distinct intramuscular or subcutaneous fluid collection is not visualized. Normal vascular contrast enhancement is noted. There is no evidence of fractures or dislocations involving the right elbow joint. There are no periosteal reactions. Impression: There is presence of soft tissue laceration in the medial right elbow and presence of diffuse soft tissue edema in the distal right arm, proximal right forearm and the right elbow. A distinct intramuscular or subcutaneous fluid collection is not visualized. Location of Interpretation: [id number]. Electronically signed by: Dano Esteban MD 04/23/2016 11:24 AM FILM RECORDIST
--- NOTE | 2016-05-16 06:06 | RAD ---
NAME: MARTIN MAHONEY JRPROCEDURE: XR CHEST 2 VIEWSORDER DATE: 04/23/2016 8:22 AM CSTACCESSION NUMBER: [id number] CLINICAL HISTORY: cough INDICATION: Same as above COMPARISON: 02/05/2015 TECHNIQUE: PA and and lateral chest radiographs were obtained. FINDINGS: Surgical flavio are again seen in the right paratracheal region . There is presence of mild discoid atelectasis/infiltrate in the right lower lobe of the lung. There are no pneumothoraces or pleural effusions. The pulmonary vascularity is normal The cardiomediastinal silhouette is unremarkable for patient's age and sex. Stable compression deformity of one of the lower thoracic vertebrae is again noted, unchanged. IMPRESSION: There is presence of mild discoid atelectasis/infiltrate in the right lower lobe of the lung. Place of interpretation: Teleradiology. Electronically signed by: Dano Esteban MD 04/23/2016 8:55 AM SUPERVISOR HOSPITALITY HOUSE
== END 2016-04-25 11:09 | disposition short-term general hospital (02) | DRG 602 ==
LOC: ER 23:02 → MS 04-23 01:31 → OBSVTOIN 04-23 01:31
PROVIDERS: ADMIT Nurse Practitioner Family; ATTEND Nurse Practitioner Family
DX: L03.113 Cellulitis of right upper limb (principal); M72.6 Necrotizing fasciitis; J44.9 Chronic obstructive pulmonary disease, unspecified; I10 Essential (primary) hypertension; F15.90 Other stimulant use, unspecified, uncomplicated; G89.29 Other chronic pain; M54.9 Dorsalgia, unspecified; F17.210 Nicotine dependence, cigarettes, uncomplicated; S51.031A Puncture wound without foreign body of right elbow, initial encounter; W23.0XXA Caught, crushed, jammed, or pinched between moving objects, initial encounter; Y93.9 Activity, unspecified; Y92.9 Unspecified place or not applicable; Z79.899 Other long term (current) drug therapy